=== PATIENT | male | born 1960 | race Caucasian/White ===

== ENCOUNTER → 2017-03-31 | Day surgery (SDC) | payer OTHER ==
[~2017-03-31] MED LIST: ADVAIR 250-501 EACH INH; ALBUTEROL MININEB NEB; ALBUTEROL17 GM INH; ALL DAY ALLERGY10 M3 PO; AMLODIPINE BESYL5 MG PO; ASPIRIN81 M2 PO; CELEXA20 MG PO; DESYREL50 M1 PO; DOCUSATE SODIU100 MG PO; LISINOPRIL20 MG PO; LO-DOSE ASPIRIN81 M1 PO; LORTAB 7.51 TAB PO; METOPROLOL SUCC25 MG PO; METOPROLOL TAR25 MG PO; MOBIC15 MG PO; MORGIDOX100 MG PO; MULTI VITAMIN1 EACH PO; NITROSTAT0.4 MG SL; OMEPRAZOLE40 M1; PERCOCET5/325 PO; PROTONIX PO; RAYOS2 MG PO; SYMBICORT INH; TRAMADOL HCL50 M2 PO; VITAMIN D31000 UNIT PO; VITAMIN E400 UNI5 PO; ZANAFLEX4 M1 PO; ZESTRIL40 MG PO; [UNRECOGNIZED DRUG - OTHER] PO
--- NOTE | ~2017-03-31 | OR ---
Unit #: [id number] #: [id number] Patient: JENNI HOLMAN [id number] [address] [place], [place] [address] [id number] MR#: [id number] NAME: JENNI HOLMAN ROOM: Date of Procedure: 03/31/2017 Admission Date: 03/31/2017 Surgeon: Janusz Rivera M.D. : 1960 Attending Physician: Janusz Rivera M.D. Primary Care Physician: Robby Zabala M.D. OPERATIVE REPORT PREOPERATIVE DIAGNOSES Upper abdominal pain, postprandial bloating and dyspepsia. In addition, the patient needs a surveillance colonoscopy having had history of colon polyps in the past. PROCEDURES PERFORMED Upper gastrointestinal endoscopy and biopsy as well as colonoscopy with polypectomy. POSTOPERATIVE DIAGNOSES For upper endoscopy: 1. The patient had mild prepyloric antral diffuse gastritis. 2. Moderate duodenitis involving the duodenal bulb. 3. Rest of the examination up to third part of duodenum was normal. A biopsy was obtained from the antrum for CLOtest. For colonoscopy: 1. The patient had a single sessile polyp in the rectum. This was removed using snare polypectomy. It was about 6 mm in size. 2. Mild sigmoid and descending colon diverticulosis. 3. Small internal hemorrhoids. 4. Rest of the examination up to cecum and terminal ileum was normal. The quality of prep was excellent. RECOMMENDATIONS 1. Omeprazole 40 mg p.o. daily. 2. Repeat colonoscopy in 5 years. SEDATION USED MAC. DESCRIPTION OF PROCEDURE Following detailed explanation of the potential risks and complications of upper endoscopy and a colonoscopy, namely perforation, bleeding, and complication related to sedation, the patient was brought to GI lab and laid in the left lateral decubitus position. Lubricated tip of the Olympus video upper endoscope was passed through the bite block into the proximal esophagus. The entire esophageal mucosa was examined and the patient was noted to have mild distal erosive esophagitis with erosions at the Z-line and the distal esophagus. The scope was then advanced into the gastric cavity and the latter was insufflated. Mucosa of the fundus, body, and antrum was examined and appeared unremarkable. Pylorus was intubated with visualization of the duodenal bulb, the latter was noted to Unit #: [id number] #: [id number] Patient: JENNI HOLMAN have focal patchy moderate erosive duodenitis. Second and third part of duodenum were normal. Upon withdrawal and retroflexion, incisura, cardia, and greater curve examined and a biopsy obtained from the antrum for CLOtest. The scope was then withdrawn from the distal esophagus. The entire esophageal mucosa was examined all the way up to pharynx. A biopsy obtained from the antrum for CLOtest. The scope was withdrawn in the distal esophagus. Entire esophageal mucosa was examined all the way up to pharynx. No additional findings noted. The examination table was then turned by 180 degrees and the patient positioned for a colonoscopy. A digital rectal examination was performed, which was normal. Lubricated tip of the Olympus video colonoscope was inserted through the anus and advanced under direct vision. The scope was advanced and passed up to sigmoid into descending colon. Scant small diverticula were noted in this area. The scope tip was then navigated all the way up to cecum with visualization of the ileocecal valve and the appendiceal orifice. Preparation was excellent with good visualization and photodocumentation obtained. Last several inches of the terminal ileum also visualized after intubation of the ileocecal valve and appeared normal. Successive segments of the colonic mucosa were examined upon withdrawal and appeared unremarkable except for a single sessile polyp in the rectum. This was about 6 mm in size. It was removed using snare polypectomy. The polyp was retrieved and sent for histology. No additional polyps were noted. Other than the diverticulosis on the left side, the patient was also noted to have small internal hemorrhoids at the anal verge. The scope was then withdrawn. The patient returned to the recovery area. He tolerated the procedure without any postprocedure complications. Dictated by... Félix Powell/bryan TD: 03/31/2017 11:16 JOB #: [id number] CC: Alexis Alejandre M.D. OPERATIVE REPORT Page 1 of 1 X Janusz Rivera MD X PROCEDURE OPERATIVE NOTE
== END | disposition home or self-care (01) ==
LOC: COPS 08:08
DX: Z12.11 Encounter for screening for malignant neoplasm of colon (principal); K62.1 Rectal polyp; K29.70 Gastritis, unspecified, without bleeding; K29.80 Duodenitis without bleeding; K57.30 Diverticulosis of large intestine without perforation or abscess without bleeding; K64.8 Other hemorrhoids; I10 Essential (primary) hypertension; J44.9 Chronic obstructive pulmonary disease, unspecified; G89.29 Other chronic pain; M54.9 Dorsalgia, unspecified; M19.90 Unspecified osteoarthritis, unspecified site; Z86.010 Personal history of colon polyps; Z87.891 Personal history of nicotine dependence; Z79.1 Long term (current) use of non-steroidal anti-inflammatories (NSAID); Z79.891 Long term (current) use of opiate analgesic; Z79.82 Long term (current) use of aspirin; Z79.51 Long term (current) use of inhaled steroids; Z79.899 Other long term (current) drug therapy; Z93.0 Tracheostomy status; Z98.890 Other specified postprocedural states
CPT/HCPCS: 87077; 88305